=== PATIENT | female | born 1975 | race Caucasian/White ===

== ENCOUNTER 2018-11-17 12:08 | Emergency (ER) | payer SELFPAY ==
[~2018-11-17] VITALS: Ht 167.6 cm; Wt 102.1 kg
[2018-11-17 12:16] VITALS: BP 154/108
--- NOTE | 2018-11-17 12:17 | NUR ---
Patient ambulated to bed 4. RN evaluating patient at bedside.
--- NOTE | 2018-11-17 12:23 | NUR ---
pt arrived to ed c/o lower back pain x yesterday. pt states, "i was lifting something yesterday i think i pulled something." pt also states, "i havent been able to sleep and im in so much pain." rates pain 9/10 and describes it as shooting and tradiated to left knee." denies any numbness or tingling. pt is able to ambulate and has a steady gait. denies any falls or truama. no obvious deformity noted. VSS; PATIENT POSITIONED FOR COMFORT; HOB ELEVATED; BEDRAILS UP X2; BED DOWN. ER MD MADE AWARE OF PT STATUS. denies any pmh. allergies: tramadol (stomach aches).
--- NOTE | 2018-11-17 12:23 | NUR ---
Antwan baldwin in [facility] - 11/17/18 at 1225 by RAY patient ambulated to bed 04
--- NOTE | 2018-11-17 13:28 | NUR ---
Dr. Martinez evaluating patient at bedside.
[2018-11-17] MEDS ORDERED: KETOROLAC 60 MG/2 ML VIAL IM ONE (13:30)
--- NOTE | 2018-11-17 13:45 | NUR ---
pt resfued toradol med. is aware. pt states, 'i rather get discharge with a prescription for pain."
[2018-11-17 13:54] VITALS: BP 108/70
--- NOTE | 2018-11-17 14:00 | NUR ---
PT DISCHARGE TEACHING DONE. ORDERED PRESCRIPTION OF NAPROSYN. PT REFUSES TO TAKE PRESCRIPTION AND PAPERWORK.
== END 2018-11-17 14:00 | disposition home or self-care (01) ==
LOC: MED 12:08
DX: M54.42 Lumbago with sciatica, left side (principal); Z88.5 Allergy status to narcotic agent
CPT/HCPCS: 99282; J1885